=== PATIENT | female | born 1935 | race Caucasian/White ===

== ENCOUNTER → 2017-12-14 | Outpatient (CLI) | payer MEDICAID, OTHER | LOC: CIMAGING 13:48 → EDSTATUS 13:49 → CIMAGING 13:50 | PROVIDERS: ATTEND Nurse Practitioner Family | DX: J32.0 Chronic maxillary sinusitis (principal) | CPT/HCPCS: 70220-PO ==

== ENCOUNTER → 2018-01-19 | Outpatient (CLI) | payer OTHER | LOC: FIMAGING 15:11 | PROVIDERS: ATTEND Internal Medicine Geriatric Medicine | DX: J32.9 Chronic sinusitis, unspecified (principal) ==

== ENCOUNTER → 2018-03-28 | Outpatient (CLI) | payer MEDICAID, OTHER | LOC: CIMAGING 15:08 | PROVIDERS: ATTEND Internal Medicine Geriatric Medicine | DX: M24.811 Other specific joint derangements of right shoulder, not elsewhere classified (principal); M25.511 Pain in right shoulder | CPT/HCPCS: 73030-PO ==

== ENCOUNTER 2018-05-20 17:01 | Inpatient (IN) | payer MEDICAID ==
[2018-05-20] MEDS ORDERED: NS 1,000 ML IV ONE (17:10)
--- NOTE | 2018-05-20 17:14 | EDPHY ---
H & P Time Seen by Provider: 05/20/18 17:03 HPI/ROS: CHIEF COMPLAINT: Vomiting HISTORY OF PRESENT ILLNESS: 83-year-old female presents with a 3 day history of vomiting. Onset of vomiting and diarrhea 2 days ago. Persistent vomiting, unable to tolerate oral fluids. Associated with generalized abdominal pain. The diarrhea has resolved No fever or other associated symptoms. History of small-bowel obstruction. REVIEW OF SYSTEMS: complete 10 point ROS reviewed and is negative except for the noted elements in the HPI - Medical/Surgical History PMH: Small-bowel obstruction Cholecystectomy Uterine cancer - Social History Alcohol Use: Sober Drug Use: None - Physical Exam Exam: General Appearance: Alert, pleasant Eyes: Pupils equal and round, no conjunctival pallor ENT, Mouth: Mucous membranes dry Neck: Normal inspection Respiratory: Lungs are clear to auscultation anteriorly Cardiovascular: Regular rate and rhythm Gastrointestinal: Abdomen is distended, diffuse tenderness, decreased bowel sounds Neurological: A&O, nonfocal exam Skin: Warm and dry Extremities: Normal inspection Psychiatric: Mood and affect normal Constitutional: Initial Vital Signs Temperature (C) 36.6 C 05/20/18 17:09 Heart Rate 82 05/20/18 17:09 Respiratory Rate 16 05/20/18 17:09 Blood Pressure 143/85 H 05/20/18 17:09 O2 Sat (%) 94 05/20/18 17:09 O2 Delivery Mode Room Air Allergies/Adverse Reactions: cortisone Allergy (Verified 05/20/18 21:18) Flushing doxycycline Allergy (Verified 05/20/18 21:18) Hives duloxetine Allergy (Verified 05/20/18 21:18) Other-Enter Comments levofloxacin Allergy (Verified 05/20/18 21:18) Hives lisinopril Allergy (Verified 05/20/18 21:18) losartan Allergy (Verified 05/20/18 21:18) Hives nortriptyline Allergy (Verified 05/20/18 21:18) Penicillins Allergy (Verified 05/20/18 21:18) Hives steroids Allergy (Uncoded 05/20/18 21:18) Other-Enter Comments Home Medications: Medication Instructions Recorded Acetaminophen [Tylenol ES 500 mg 1,000 mg PO Q6 PRN 05/20/18 (*)] Aspirin EC [Aspirin EC 81 mg (*)] 81 mg PO DAILY 05/20/18 Atenolol [Tenormin 25 mg (*)] 25 mg PO DAILY 05/20/18 Azelastine HCl 2 sprays NS DAILY 05/20/18 Fluticasone Nasal [Flonase Nasal 2 sprays NASAL DAILY 05/20/18 [place] (RX)] Herbals/Supplements -Info Only 1 ea PO DAILY 05/20/18 P-EPHED HCL/FEXOFENADINE HCL 1 each PO DAILY 05/20/18 [VALDO-D 12 HOUR TABLET] traMADol [Ultram 50 mg (*)] 50 mg PO Q6-8PRN PRN 05/20/18 Medical Decision Making - Diagnostics Imaging Results: Abdomen CT 05/20/18 17:51 Impression: 1. Small bowel dilatation suggesting ileus or obstruction with no single focal transition point identified, with multiple areas of decompression in the left lower quadrant. 2. Moderate hiatal hernia. 3. Indeterminate bilateral adrenal nodules. If previous imaging of the chest or abdomen has been performed at an outside facility, I would be happy to compare it. If not, MR adrenal protocol or CT adrenal protocol could be performed for further evaluation. 4. Additional findings as above. Findings discussed with Dr. Beatriz Aj on 05/20/2018 at 1943 hours. Imaging: Discussed imaging studies w/ call worker Radiologist ED Course/Re-evaluation: This patient presents with vomiting and abdominal pain, most concerning for small bowel obstruction. IV normal saline 1 L and Zofran [address] scan reveals a small bowel obstruction. Results discussed with the patient. An NG tube was placed. The hospitalist service was consulted for admission. Dr. Roe Ramirez was consulted and saw the pt in the ED. Differential Diagnosis: Differential diagnosis includes though it is not limited to appendicitis, cholecystitis, diverticulitis, pyelonephritis, bowel perforation, small bowel obstruction. - Data Points Laboratory Results: Laboratory Results 05/20/18 17:24 05/20/18 17:24 Medications Given: Acetaminophen (Tylenol Rectal) 650 mg NE Q4HRS PRN PRN Reason: Pain, Mild/Fever,Can't Take PO Stop: 11/16/18 21:19 Last Admin: 05/22/18 17:45 Dose: 650 mg Enoxaparin Sodium (Lovenox) 80 mg SC BID NATHALIA Stop: 11/18/18 09:59 Last Admin: 05/23/18 08:08 Dose: 80 mg Fluticasone Propionate (Flonase Nasal [place]) 2 sprays [place] DAILY [facility] Stop: 11/17/18 08:59 Last Admin: 05/23/18 08:43 Dose: Not Given Hydromorphone HCl (Dilaudid) 0.2 - 0.4 mg IVP Q4HRS PRN PRN Reason: Pain, Severe Unable to Take PO Stop: 05/30/18 21:19 Last Admin: 05/23/18 13:17 Dose: 0.4 mg Potassium Chloride/Dextrose/Sod Cl (D5w Ns W/ 20 Kcl/L) 1,000 mls @ 100 mls/hr IV CONT NATHALIA Stop: 11/16/18 21:29 Last Admin: 05/23/18 16:12 Dose: 1,000 mls Miscellaneous Medication (Azelastine Hcl [Azelastine Hcl]) 2 sprays NS DAILY NATHALIA Stop: 11/17/18 08:59 Last Admin: 05/23/18 08:43 Dose: Not Given Discontinued Medications Diltiazem HCl (Cardizem 25 Mg/5 Ml Vial) 10 mg IVP ONCE ONE Stop: 05/21/18 23:31 Last Admin: 05/21/18 23:38 Dose: 10 mg Diltiazem HCl (Cardizem 25 Mg/5 Ml Vial) 10 mg IVP ONCE ONE Stop: 05/22/18 00:31 Last Admin: 05/22/18 00:35 Dose: 10 mg Diltiazem HCl (Cardizem Immediate Release) 30 mg PO Q6HRS [facility] Stop: 11/18/18 09:44 Last Admin: 05/23/18 04:54 Dose: 30 mg Enoxaparin Sodium (Lovenox) 40 mg SC DAILY NATHALIA Stop: 11/17/18 08:59 Last Admin: 05/22/18 09:59 Dose: Not Given Hydromorphone HCl (Dilaudid) 0.2 mg IVP EDNOW ONE Stop: 05/20/18 22:10 Last Admin: 05/20/18 22:26 Dose: 0.2 mg Sodium Chloride (Ns) 1,000 mls @ 0 mls/hr IV EDNOW ONE; Wide Open PRN Reason: Protocol Stop: 05/20/18 17:11 Last Admin: 05/20/18 17:31 Dose: 1,000 mls Sodium Chloride (Ns) 500 mls @ 0 mls/hr IV ONCE ONE PRN Reason: Wide Open Stop: 05/21/18 22:51 Last Admin: 05/22/18 05:10 Dose: Not Given Sodium Chloride (Ns) 500 mls @ 0 mls/hr IV ONCE ONE PRN Reason: Wide Open Stop: 05/21/18 23:39 Last Admin: 05/22/18 05:10 Dose: Not Given Diltiazem/Dextrose (Diltiazem 125mg/125ml (Premix)) 125 mls @ 0 mls/hr IV CONT NATHALIA; Per Protocol PRN Reason: Protocol Stop: 11/18/18 03:29 Last Admin: 05/22/18 04:49 Dose: 125 mls Point of Care Test Results: Chemistry 05/20/18 17:40 POC Sodium 136 mEq/L mEq/L (135-145) POC Potassium 3.4 mEq/L mEq/L (3.3-5.0) POC Chloride 101 mEq/L mEq/L (97-110) POC Total CO2 20 mEq/L L mEq/L (22-31) POC BUN 23 mg/dL mg/dL (7-23) POC Creatinine 0.9 mg/dL mg/dL (0.6-1.0) POC Glucose 127 mg/dL H mg/dL (70-100) ISTAT H&H 05/20/18 17:40 POC Hgb 16.0 gm/dL gm/dL (12.6-16.3) POC Hct 47 % % (38-47) Departure - Departure Disposition: [facility] Acute Clinical Impression: Small bowel obstruction Condition: Fair
[2018-05-20] MEDS ORDERED: IOPAMIDOL (ISOVUE-300) 100 ML BTL ONE (18:19)
[2018-05-20] MEDS ORDERED: ONDANSETRON 4 MG/2 ML VIAL IVP PRN (21:20)
[2018-05-20] MEDS ORDERED: PROMETHAZINE HCL 25 MG/ML INJ IVP PRN (21:20)
--- NOTE | 2018-05-20 21:23 | PDGENHP ---
History and Physical - Chief Complaint abdominal pain, vomiting, diarrhea - History of Present Illness 83 yo female with h/o prior abdominal surgeries presents to ED with abdominal pain, vomiting and diarrhea. Her symptoms began ~3 days ago and over past 2 days, she has been unable to tolerate po with recurrent vomiting. She has also been having watery, leaking diarrhea, but no formed stool. She thought maybe she had the flu so tried to wait it out, but had increased pain and recurrent vomiting today so came to the ED. No fevers/chills. No urinary symptoms. No hematemesis or coffee ground emesis. No CP or SOB In the ED, CT showed SBO. NG tube was placed, surgery was consulted and she is admitted for further management. History Information - Allergies/Home Medication List Allergies/Adverse Reactions: cortisone Allergy (Verified 05/20/18 21:18) Flushing doxycycline Allergy (Verified 05/20/18 21:18) Hives duloxetine Allergy (Verified 05/20/18 21:18) Other-Enter Comments levofloxacin Allergy (Verified 05/20/18 21:18) Hives lisinopril Allergy (Verified 05/20/18 21:18) losartan Allergy (Verified 05/20/18 21:18) Hives nortriptyline Allergy (Verified 05/20/18 21:18) Penicillins Allergy (Verified 05/20/18 21:18) Hives steroids Allergy (Uncoded 05/20/18 21:18) Other-Enter Comments Home Medications: Acetaminophen [Tylenol ES 500 mg (*)] 1,000 mg PO Q6 PRN 05/20/18 [Last Taken Unknown] Aspirin EC [Aspirin EC 81 mg (*)] 81 mg PO DAILY 05/20/18 [Last Taken 05/17/18] Atenolol [Tenormin 25 mg (*)] 25 mg PO DAILY 05/20/18 [Last Taken 05/18/18] Azelastine HCl 2 sprays NS DAILY 05/20/18 [Last Taken Unknown] Fluticasone Nasal [Flonase Nasal [place] (RX)] 2 sprays NASAL DAILY 05/20/18 [ Last Taken Unknown] Herbals/Supplements -Info Only 1 ea PO DAILY 05/20/18 [Last Taken Unknown] P-EPHED HCL/FEXOFENADINE HCL [VALDO-D 12 HOUR TABLET] 1 each PO DAILY [Last Taken Unknown] traMADol [Ultram 50 mg (*)] 50 mg PO Q6-8PRN PRN 05/20/18 [Last Taken 05/20/18 14:00] I have personally reviewed and updated: family history, medical history, social history, surgical history - Past Medical History hypertension - Surgical History Reports: cholecystectomy, hysterectomy - Family History Positive for: non-pertinent - Social History Smoking Status: Never smoked Alcohol Use: Sober Drug Use: None Additional social history: Lives independently Review of Systems Review of Systems: ROS: 10pt was reviewed & negative except for what was stated in HPI & below Physical Exam Physical Exam: Temp Pulse Resp BP Pulse Ox 36.6 C 82 16 143/85 H 94 05/20/18 17:18 05/20/18 17:18 05/20/18 17:18 05/20/18 17:18 05/20/18 17:18 Constitutional: no apparent distress Eyes: PERRL Ears, Nose, Mouth, Throat: moist mucous membranes Cardiovascular: regular rate and rhythym Respiratory: no respiratory distress, clear to auscultation Gastrointestinal: other (soft, moderately distented with +TTP and some guarding , +peritoneal signs with pain on percussion) Skin: warm Musculoskeletal: full muscle strength Neurologic: AAOx3 Psychiatric: interacting appropriately Lab Data & Imaging Review 05/20/18 17:24 05/20/18 17:24 WBC REJ 05/20/18 17:24 RBC TNP 05/20/18 17:24 Hgb TNP 05/20/18 17:24 POC Hgb 16.0 gm/dL (12.6-16.3) 05/20/18 17:40 Hct TNP 05/20/18 17:24 POC Hct 47 % (38-47) 05/20/18 17:40 MCV TNP 05/20/18 17:24 MCH TNP 05/20/18 17:24 MCHC TNP 05/20/18 17:24 RDW TNP 05/20/18 17:24 Plt Count TNP 05/20/18 17:24 MPV TNP 05/20/18 17:24 Neut % (Auto) TNP 05/20/18 17:24 Lymph % (Auto) TNP 05/20/18 17:24 [place] % (Auto) TNP 05/20/18 17:24 Eos % (Auto) TNP 05/20/18 17:24 Baso % (Auto) TNP 05/20/18 17:24 Nucleat RBC Rel Count TNP 05/20/18 17:24 Absolute Neuts (auto) TNP 05/20/18 17:24 Absolute Lymphs (auto) TNP 05/20/18 17:24 Absolute Monos (auto) TNP 05/20/18 17:24 Absolute Eos (auto) TNP 05/20/18 17:24 Absolute Basos (auto) TNP 05/20/18 17:24 Absolute Nucleated RBC TNP 05/20/18 17:24 Immature Gran % TNP 05/20/18 17:24 Immature Gran # TNP 05/20/18 17:24 POC Sodium 136 mEq/L (135-145) 05/20/18 17:40 Sodium 132 mEq/L (135-145) L 05/20/18 17:24 POC Potassium 3.4 mEq/L (3.3-5.0) 05/20/18 17:40 Potassium 3.9 mEq/L (3.5-5.2) 05/20/18 17:24 POC Chloride 101 mEq/L (97-110) 05/20/18 17:40 Chloride 100 mEq/L (97-110) 05/20/18 17:24 Carbon Dioxide 17 mEq/l (22-31) L 05/20/18 17:24 POC Total CO2 20 mEq/L (22-31) L 05/20/18 17:40 Anion Gap 15 mEq/L (6-14) H 05/20/18 17:24 POC BUN 23 mg/dL (7-23) 05/20/18 17:40 BUN 25 mg/dL (7-23) H 05/20/18 17:24 Creatinine 0.9 mg/dL (0.6-1.0) 05/20/18 17:24 POC Creatinine 0.9 mg/dL (0.6-1.0) 05/20/18 17:40 Estimated GFR 60 05/20/18 17:24 Glucose 121 mg/dL (70-100) H 05/20/18 17:24 POC Glucose 127 mg/dL (70-100) H 05/20/18 17:40 Calcium 9.8 mg/dL (8.5-10.4) 05/20/18 17:24 Total Bilirubin 0.5 mg/dL (0.1-1.4) 05/20/18 17:24 Conjugated Bilirubin 0.3 mg/dL (0.0-0.5) 05/20/18 17:24 Unconjugated Bilirubin 0.2 mg/dL (0.0-1.1) 05/20/18 17:24 AST 27 IU/L (14-46) 05/20/18 17:24 ALT 26 IU/L (9-52) 05/20/18 17:24 Alkaline Phosphatase 103 IU/L (38-126) 05/20/18 17:24 Total Protein 8.3 g/dL (6.3-8.2) H 05/20/18 17:24 Albumin 4.3 g/dL (3.5-5.0) 05/20/18 17:24 Lipase 100 IU/L (23-300) 05/20/18 17:24 Assessment & Plan Assessment: Small bowel obstruction (Acute) - NG tube placed for ongoing vomiting, pt has put out >400 cc's during my evaluation. Surgery is consulted. Pt will be kept NPO, pain control with IV dilaudid. Hopefully will resolve with conservative therapy. Diarrhea - likely subsequent to above, but will check GI PCR. Hyponatremia - mild, likely 2/2 volume depletion -NS overnight and recheck in am Metabolic acidosis with mildly elevated AG - suspect starvation ketosis -hydrate and follow Adrenal nodules - f/u CT adrenal protocol when SBO resolved Full code Dispo - admit to inpt, anticipate >48 hrs hospitalization for ongoing management of SBO
[2018-05-20] MEDS ORDERED: HYDROmorphONE/DILAUDID 2 MG/ML INJ IVP ONE (22:09)
[2018-05-21 05:24] LABS: PLATELET COUNT 274 10^3/uL (150-400)
[2018-05-21] MEDS: HYDROmorphONE/DILAUDID 1 MG/ML INJ IVP PRN ×4 (06:03→21:48)
[2018-05-21] MEDS: D5W NS W/ 20 KCl/L 1,000 ML IV SCH ×3 (06:21→22:02)
--- NOTE | 2018-05-21 08:02 | GCON ---
[f rep st] CONSULTATION DATE OF CONSULTATION: 05/20/2018 REFERRING PHYSICIAN: Beatriz Aj MD REASON FOR EVALUATION: Small-bowel obstruction. HISTORY OF PRESENT ILLNESS: 83-year-old spunky female with a remote history of endometrial carcinoma status post total abdominal hysterectomy with bilateral salpingo-oophorectomy with bladder suspension and subsequent laparoscopic cholecystectomy. She describes having suffered from a prior adhesive small- bowel obstruction 1 year ago, which improved with nasogastric decompression. She presents to the emergency room today with a 2-3 day history of progressive abdominal pain. She reports that her bowel movements are generally soft and watery and have been diminished in quantity. She reports that her last flatus was earlier this afternoon. Her last full bowel movement was approximately Wednesday. She reports associated nausea and vomiting for which she called the EMS because of a feeling of weakness. She denies fevers or chills. She denies voiding complaints. Upon ED arrival imaging studies were consistent with a small bowel obstruction. Nasogastric tube was placed and surgery consulted for further recommendations. PAST MEDICAL HISTORY: Hypertension, endometrial carcinoma. PAST SURGICAL HISTORY: Total abdominal hysterectomy with bilateral salpingo- oophorectomy, bladder suspension, laparoscopic cholecystectomy, right total knee replacement, a LEEP procedure. MEDICATIONS: Home medications: Tylenol p.r.n., aspirin, atenolol, azelastine, fluticasone, multiple supplementals, tramadol p.r.n. ALLERGIES: Multiple allergies including cortisone, doxycycline, duloxetine, Levaquin, lisinopril, losartan, nortriptyline, penicillin. SOCIAL HISTORY: The patient lives independently. She is followed by Dr. Marisa Camargo at [facility]. REVIEW OF SYSTEMS: Notable for acute GI complaints only. LABORATORY DATA: Sodium 136, potassium 3.4, chloride 101, CO2 20, BUN 23, creatinine 0.9, glucose 127. Liver enzymes within reference range. CBC rejected by lab. IMAGING: CT images were directly reviewed on PACS, notable proximal small bowel obstruction with decompressed distal small bowel. No free fluid. No free air. Moderate size hiatal hernia consistent with nasogastric tube difficulty. Subtle bilateral adrenal nodules. IMPRESSION: Partial small bowel obstruction, most likely adhesive in nature. RECOMMENDATIONS: Continue with conservative measures with nasogastric decompression - her tube was manipulated with large outpouring of gastric content. If no clinical resolution or subsequent deterioration in the next 72 hours, consideration for laparoscopic exploration will be entertained at that time. Findings and recommendations were discussed with the patient in detail. All questions were answered. /[id number]/MODL MTDD
--- NOTE | 2018-05-21 09:26 | HOSPPROG ---
Hospitalist Progress Note Assessment/Plan: Small bowel obstruction (Acute) - Xray this am shows some improvement (pers reviewed/interpreted). Discussed with Dr. Fernando. -Cont NG tube, IVF's, NPO, conservative management -Gastrograffin study today Diarrhea - Likely related to above -GI PCR pending Hyponatremia - likely hypovolemic, resolved with IVF's Metabolic acidosis with mildly elevated AG - suspect starvation ketosis, improving -cont IVF's Adrenal nodules - f/u CT adrenal protocol when SBO resolved, could be done as outpt Full code Dispo - cont inpt Subjective: Pt feels a little better. Passing flatus, no formed BM but still some leaking watery stool. No fevers/chills. Tolerating NG tube. No N/V. A little less pain and distention. Objective: Vital Signs Temp Pulse Resp BP Pulse Ox 36.8 C 82 16 135/72 H 95 05/21/18 08:30 05/21/18 08:30 05/21/18 08:30 05/21/18 08:30 05/21/18 08:30 Laboratory Results 05/21/18 04:43 05/21/18 04:43 05/20/18 05/21/18 05/22/18 05:59 05:59 06:59 Intake Total 794 Output Total 200 Balance 794 -200 - Physical Exam Constitutional: no apparent distress Eyes: PERRL Ears, Nose, Mouth, Throat: moist mucous membranes Cardiovascular: regular rate and rhythym Respiratory: no respiratory distress, clear to auscultation Gastrointestinal: other (soft, mild distention (improved), +BS) Skin: warm Musculoskeletal: full muscle strength Neurologic: AAOx3 Psychiatric: interacting appropriately ICD10 Worksheet Patient Problems: Problems Problem Status Onset Small bowel obstruction Acute
[2018-05-21] MEDS: AZELASTINE HCL NS SCH (09:42)
[2018-05-21] MEDS: ENOXAPARIN 40 MG/0.4 ML SYR SC SCH (10:40)
--- NOTE | 2018-05-21 10:51 | PDMN ---
Medical Necessity Medical necessity: [facility] M210 Intestinal Obstruction, 2 days: 83 yo presents w/ N/ V, abd pain, diarrhea. Eval reveals SBO. Surgical consult. NGT placed. NPO. IVF. IV Dilaudid for pain management. Inpatient status.
--- NOTE | 2018-05-21 11:50 | SOAPPROG ---
[facility] Progress Note Assessment/Plan: Assessment/Plan: 83-year-old patient with a history of abdominal hysterectomy presented to the hospital with questionable small-bowel obstruction versus enteritis. The patient has had a positive test for norovirus today and has had gas and stool from the bottom. Patient's pain was different from her at obstruction last year treated non operatively Regular rate and rhythm Clear to auscultation Abdomen soft nondistended Extremities without edema NG tube productive of enteric bile no signs of feculent material. Small-bowel obstruction versus enteritis. Enteritis favored. Abdominal x-ray from this morning demonstrates gas within the colon and less of an obstructive pattern. Would favor supportive care at this time. Hold on Gastrografin small- bowel follow-through. Will continue to follow for now. 05/21/18 11:48 Objective: Vital Signs Temp Pulse Resp BP Pulse Ox 36.8 C 82 16 135/72 H 95 05/21/18 08:30 05/21/18 08:30 05/21/18 08:30 05/21/18 08:30 05/21/18 08:30 Microbiology 05/21/18 00:30 Gastrointestinal Tract Panel (PCR) - Final Stool Norovirus Gi/Gii Laboratory Results 05/21/18 04:43 05/21/18 04:43 05/20/18 05/21/18 05/22/18 05:59 05:59 06:59 Intake Total 794 Output Total 200 Balance 794 -200 ICD10 Worksheet Patient Problems: Problems Problem Status Onset Small bowel obstruction Acute
--- NOTE | 2018-05-21 12:49 | ASMTCMCOM ---
CM Note CM Note Notes: Pt has been admitted with SBO and tested positive for norovirus. NGT placed and surgery consult requested. No PT/OT orders at this time. Pt lives independently in [place]. CM wlll follow for any d/c needs. D/C plan: TBD Date Signed: 05/21/2018 12:49 PM Electronically Signed By:THERESA Reeder
[2018-05-21] MEDS: FLUTICASONE NASAL 120 SPRAYS/16 GM MDI EACHNARE SCH (13:04)
[2018-05-21] MEDS ORDERED: NS 500 ML IV ONE ×2 (22:50→23:38)
[2018-05-21] MEDS ORDERED: DILTIAZEM 25 MG/5 ML VIAL IVP ONE (23:30)
--- NOTE | 2018-05-21 23:30 | HOSPPROG ---
Hospitalist Progress Note Assessment/Plan: XC: Patient noted to have new SVT w/ HR in the 140-160 range. She tells me she has had elevated HR before but no formal diagnosis. She is on atenolol as outpatient. She is relatively comfortable with normal BP. ECG demonstrates AF w / RVR. I will bolus diltiazem 10 mg IV x1 and give NS bolus; will proceed to dilt gtt if bolus not successful. Objective: Vital Signs Temp Pulse Resp BP Pulse Ox 36.8 C 89 16 147/65 H 94 05/21/18 20:00 05/21/18 20:00 05/21/18 20:00 05/21/18 20:00 05/21/18 20:00 Microbiology 05/21/18 00:30 Gastrointestinal Tract Panel (PCR) - Final Stool Norovirus Gi/Gii Laboratory Results 05/21/18 04:43 05/21/18 04:43 05/20/18 05/21/18 05/22/18 05:59 05:59 06:59 Intake Total 794 1927 Output Total 1300 Balance 794 627 ICD10 Worksheet Patient Problems: Problems Problem Status Onset Small bowel obstruction Acute
[2018-05-22] MEDS ORDERED: DILTIAZEM 25 MG/5 ML VIAL IVP ONE (00:30)
[2018-05-22] MEDS: HYDROmorphONE/DILAUDID 1 MG/ML INJ IVP PRN ×5 (03:25→20:42)
[2018-05-22] MEDS ORDERED: DILTIAZEM HCL/D5W 125 ML IV SCH (03:30)
[2018-05-22] MEDS: D5W NS W/ 20 KCl/L 1,000 ML IV SCH ×3 (06:08→21:55)
--- NOTE | 2018-05-22 07:54 | SOAPPROG ---
SOAP Progress Note Assessment/Plan: Assessment/Plan: 83-year-old patient with a history of abdominal hysterectomy presented to the hospital with questionable small-bowel obstruction versus enteritis. The patient has had a positive test for norovirus today and has had gas and stool from the bottom. Patient's pain was different from her at obstruction last year treated non operatively Regular rate and rhythm Clear to auscultation Abdomen soft nondistended Extremities without edema NG tube productive of enteric bile no signs of feculent material. Minimal NGT output Passing flatus Positive Norovirus. Clamp NGT. Cont clear liquids. If tolerating clears D/C NGT and advance diet 05/21/18 11:48 05/22/18 07:52 Objective: Vital Signs Temp Pulse Resp BP Pulse Ox 36.9 C 107 H 20 153/101 H 98 05/22/18 04:00 05/22/18 04:49 05/22/18 04:00 05/22/18 04:00 05/22/18 04:00 Microbiology 05/21/18 00:30 Gastrointestinal Tract Panel (PCR) - Final Stool Norovirus Gi/Gii Laboratory Results 05/21/18 04:43 05/21/18 04:43 05/21/18 05/22/18 05/23/18 04:59 05:59 05:59 Intake Total Output Total Balance ICD10 Worksheet Patient Problems: Problems Problem Status Onset Small bowel obstruction Acute
[2018-05-22] MEDS: AZELASTINE HCL NS SCH (08:24)
--- NOTE | 2018-05-22 09:35 | HOSPPROG ---
Hospitalist Progress Note Assessment/Plan: Norovirus - presented with SBO symptoms, requiring NG tube. Discussed with surg , this is likely all enteritis due to infectious etiology. Now c flatus and BM. -cont supportive care with IVF's, clear liquids as tolerated -clamp ng tube this am, remove if tolerates clears -contact precautions New onset A fib - in setting of acute illness, chads-vasc 4 (gender, age, htn), currently HR 100's on IV dilt drip -start oral dilt 30 q6h, wean off IV drip as able -will give lovenox now for cva prevention -suspect she has paroxysmal a fib with reported symptoms, likely warrants AC at dc and outpt cardiac event monitor -check echo and TSH Hyponatremia - likely hypovolemic, resolved with IVF's Metabolic acidosis with mildly elevated AG - suspect starvation ketosis, improving -cont IVF's Adrenal nodules - f/u CT adrenal protocol when SBO resolved, could be done as outpt Full code Dispo - cont inpt, PCU Subjective: Pt feels a little better, still weak and not taking much po. She denies CP or SOB, but does feel abnormal heart rhythm. No N/V. Tolerating clears. Has passed gas and continues to have BM's. Objective: Vital Signs Temp Pulse Resp BP Pulse Ox 37.1 C 110 H 16 122/57 H 96 05/22/18 08:19 05/22/18 08:19 05/22/18 08:19 05/22/18 08:19 05/22/18 08:19 Microbiology 05/21/18 00:30 Gastrointestinal Tract Panel (PCR) - Final Stool Norovirus Gi/Gii Laboratory Results 05/21/18 04:43 05/21/18 04:43 05/21/18 05/22/18 05/23/18 04:59 05:59 05:59 Intake Total Output Total Balance - Physical Exam Constitutional: no apparent distress Eyes: PERRL Ears, Nose, Mouth, Throat: moist mucous membranes Cardiovascular: irregularly irregular Respiratory: no respiratory distress, clear to auscultation Gastrointestinal: normoactive bowel sounds, soft, non-tender abdomen, distension Skin: warm Musculoskeletal: full muscle strength Neurologic: AAOx3 Psychiatric: interacting appropriately ICD10 Worksheet Patient Problems: Problems Problem Status Onset Small bowel obstruction Acute
[2018-05-22] MEDS: ENOXAPARIN 40 MG/0.4 ML SYR SC SCH (09:59)
[2018-05-22] MEDS: ENOXAPARIN 80 MG/0.8 ML SYR SC SCH ×2 (10:23→20:55)
[2018-05-22] MEDS: DILTIAZEM 30 MG TAB PO SCH ×3 (10:23→17:45)
[2018-05-22] MEDS: FLUTICASONE NASAL 120 SPRAYS/16 GM MDI EACHNARE SCH (12:00)
[2018-05-22] MEDS: ACETAMINOPHEN 650 MG SUPP PR PRN (17:45)
--- NOTE | 2018-05-22 18:35 | ECHO ---
[email or web address] [address] [address] Main: [phone] Echocardiography Examination Transthoracic Name: JANA GAO MR#: [id number] Study Date: 05/22/2018 Study Time: 07:05 AM Date of : 1935 Age: 83 year(s) Height: 170.2 cm (67 in.) Weight: 77.11 kg (170 lb.) BSA: 1.89 m2 Gender: Female Examination: Echo Indication: New onset atrial fibrillation Image Quality: Adequate Contrast: Requested by: ?? BP: 123 mmHg/81 mmHg Heart Rate: Rhythm: Indication: New onset atrial fibrillation Procedure Staff Referring Physician: Coke Drawer: Miya Beach RDCS Reading Physician: Danny Valencia MD Requesting Provider: Indication: New onset atrial fibrillation Measurements Chambers AV/MV Label Value Normal Value Label Value Normal Value EF lower range (%) 70 % AV PGmean 5 mmHg EF upper range (%) 75 % AV Vmax, Curve 1.5 m/s IVSd, 2D 0.8 cm (0.6cm - 1.1cm) MV A Vmax 0.29 m/s LVDd, 2D 4.2 cm (3.9cm - 5.3cm) MV E Vmax 1.11 m/s LVDs, 2D 2.3 cm (2.1cm - 4cm) MV E/A 3.83 LVEF, 2D 78 % (54% - 74%) TV/PV LVEF, BP 67 % (55% - 70%) Label Value Normal Value LVEF, MOD2 64 % (55% - 70%) RA Pressure 5 mmHg LVEF, MOD4 67 % (55% - 70%) RVSP 30 mmHg LVPWd, 2D 1 cm TR Pmax 25 mmHg LA Area, A2C 22.4 cm2 (0cm2 - 20cm2) TR Vmax 2.48 m/s LA Volume, A2C 74 ml (22ml - 52ml) LADs, 2D 3.8 cm (2.7cm - 3.8cm) Additional Vessels Label Value Normal Value AoAsc 3.5 cm AoRoot, MM 3.2 cm (2.2cm - 3.7cm) Patient: JANA GAO Study Date: 05/22/2018 Page 1 of 3 07:05 AM Conclusions Left ventricular systolic ejection fraction was normal (70%) Patient was in atrial fibrillation over course of this study Normal RV size and function Mild to mod LAE with normal right atrial dimensions Mild MR Trileaflet aortic valve with mild sclerosis (no stenosis) Mild TR with RVSP of 30 mm HG Normal aortic dimensions Findings Left Ventricle: Left ventricle is normal in size. Global hypercontractility of the left ventricle. EF range is estimated at 70 % - 75 %. Left ventricle wall thickness is normal. There is no regional wall motion abnormalities. Unable to assess Diastolic Dysfunction due to atrial fibrillation/a flutter. IVS: The septum is intact. Right Ventricle: Normal size right ventricle. Right ventricular wall thickness is normal. Right ventricular systolic function is normal. Left Atrium: The left atrium is mildly to moderately dilated. IAS: Normal appearing atrial septum. Right Atrium: The right atrium is normal in size. Mitral Valve: Mitral valve appears structurally normal. Mild mitral regurgitation. No mitral valve stenosis. Aortic Valve: No aortic valve regurgitation. There is no aortic stenosis. Aortic leaflets exhibit mild calcification. The aortic valve is trileaflet. Tricuspid Valve: Tricuspid valve leaflets are normal in appearance and function. Mild tricuspid regurgitation. No tricuspid valve stenosis. Right Ventricular systolic pressure is measured at 30 mmHg. Pulmonary artery pressure normal. Pulmonic Valve: Pulmonic leaflets exhibit normal cuspal separation. No pulmonic valve regurgitation is evident. There is no pulmonic valve stenosis. Aorta: The aorta is normal. The aortic root size in M-mode measures 3.2 cm. The ascending aorta measures 3.5 cm. Aorta Measurements AoRoot, MM is 3.2 cm. Pulmonary Artery: The pulmonary artery morphology appears normal. IVC: The inferior vena cava is normal in size and course. Pericardium: A pericardial fat pad is present. No pericardial effusion. No pleural effusion present. Exam Details Procedure Ordered: Echo Procedure Status: Routine study Image Quality: Adequate Facility Location: Cardiac Echo 1 Patient: JANA GAO Study Date: 05/22/2018 Page 2 of 3 07:05 AM (No Signature Object) Patient: JANA GAO Study Date: 05/22/2018 Page 3 of 3 07:05 AM [id number]
[2018-05-23] MEDS: DILTIAZEM 30 MG TAB PO SCH ×2 (00:52→04:54)
[2018-05-23] MEDS: HYDROmorphONE/DILAUDID 1 MG/ML INJ IVP PRN ×5 (00:52→19:24)
[2018-05-23] MEDS: D5W NS W/ 20 KCl/L 1,000 ML IV SCH ×3 (04:55→16:12)
[2018-05-23] MEDS: ENOXAPARIN 80 MG/0.8 ML SYR SC SCH ×2 (08:08→21:48)
[2018-05-23] MEDS: AZELASTINE HCL NS SCH (08:43)
[2018-05-23] MEDS: FLUTICASONE NASAL 120 SPRAYS/16 GM MDI EACHNARE SCH (08:43)
--- NOTE | 2018-05-23 10:09 | HOSPPROG ---
Hospitalist Progress Note Assessment/Plan: Norovirus - presented with SBO symptoms, requiring NG tube. Discussed with surg , this is likely all enteritis due to infectious etiology. Now c flatus and BM. -cont supportive care with IVF's, clear liquids as tolerated -ng tube remains, didn't tolerate clamping ng tube yest -repeat abdominal xray today -contact precautions New onset A fib - in setting of acute illness, chads-vasc 4 (gender, age, htn), back in NSR today. Sounds like she has had recurrent symptoms c/w PAF. -transition to dilt cd 120 qd, off drip, back in NSR this am -cont lovenox for cva prevention, likely transition to eliquis at dc -plan for outpt cardiac event monitor to further investigate a fib burden -echo and TSH ok Hyponatremia - likely hypovolemic, resolved with IVF's Metabolic acidosis with mildly elevated AG - suspect starvation ketosis, improving -cont IVF's Adrenal nodules - f/u CT adrenal protocol when SBO resolved, could be done as outpt Full code Dispo - cont inpt, PCU Subjective: Pt still feels lousy. NG tube back to suction, did not tolerate oral intake with clamping ng tube yesterday. Now in NSR. No CP or SOB. She decribes recurrent episodes of irregular palpitations over past several years. No fevers. Still having BM's, diarrhea. Objective: Vital Signs Temp Pulse Resp BP Pulse Ox 36.4 C 85 18 143/69 H 93 05/23/18 08:00 05/23/18 08:00 05/23/18 08:00 05/23/18 08:00 05/23/18 08:00 Laboratory Results 05/21/18 04:43 05/21/18 04:43 05/22/18 05/23/18 05/24/18 05:59 05:59 05:59 Intake Total 3635 Output Total 500 Balance 3135 - Physical Exam Constitutional: no apparent distress Eyes: PERRL Ears, Nose, Mouth, Throat: moist mucous membranes Cardiovascular: regular rate and rhythym Respiratory: no respiratory distress, clear to auscultation Gastrointestinal: normoactive bowel sounds, soft, non-tender abdomen Skin: warm Musculoskeletal: full muscle strength Neurologic: AAOx3 Psychiatric: interacting appropriately ICD10 Worksheet Patient Problems: Problems Problem Status Onset Small bowel obstruction Acute
--- NOTE | 2018-05-23 12:07 | ASMTCMCOM ---
CM Note CM Note Notes: NG tube back to suction; patient did not tolerate PO yesterday with clamping of tube. PT/OT recommending home health v SNF. Patient is enrolled w [facility]; she goes to their center 2x week and has PT there. She has light housekeeping help, as well. [facility] does not really contract w SNFs for rehab but rather uses them occasionally for respite until a patient can return to their program. Contact at [facility] is Repair Arm[employer] Winder [phone] Patient's needs still TBD; Case Management will follow. Date Signed: 05/23/2018 12:06 PM Electronically Signed By:Arianna Mcconnell RN
[2018-05-23] MEDS: DILTIAZEM CD 120 MG CAP PO SCH ×2 (13:17→18:37)
--- NOTE | 2018-05-23 15:23 | SOAPPROG ---
SOAP Progress Note Assessment/Plan: Assessment/Plan: 83-year-old patient with a history of abdominal hysterectomy presented to the hospital with questionable small-bowel obstruction versus enteritis. The patient has had a positive test for norovirus today and has had gas and stool from the bottom. Patient's pain was different from her at obstruction last year treated non operatively Regular rate and rhythm Clear to auscultation Abdomen soft nondistended Extremities without edema NG tube productive of enteric bile no signs of feculent material. Minimal NGT output Passing flatus and BM Positive Norovirus. AXR reviewed no sbo NGT removed Adv diet slowly. 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 05/21/18 11:48 05/22/18 07:52 05/23/18 15:22 Objective: Vital Signs Temp Pulse Resp BP Pulse Ox 36.7 C 87 18 161/90 H 96 05/23/18 11:30 05/23/18 11:30 05/23/18 11:30 05/23/18 11:30 05/23/18 11:30 Laboratory Results 05/21/18 04:43 05/21/18 04:43 05/22/18 05/23/18 05/24/18 05:59 05:59 05:59 Intake Total 3635 1150 Output Total 500 350 Balance 3135 800 ICD10 Worksheet Patient Problems: Problems Problem Status Onset Small bowel obstruction Acute
[2018-05-23] MEDS: ACETAMINOPHEN 650 MG SUPP PR PRN (21:48)
[2018-05-24] MEDS: D5W NS W/ 20 KCl/L 1,000 ML IV SCH (01:58)
[2018-05-24] MEDS: HYDROmorphONE/DILAUDID 1 MG/ML INJ IVP PRN (04:28)
--- NOTE | 2018-05-24 10:17 | HOSPPROG ---
Hospitalist Progress Note Assessment/Plan: Norovirus - presented with SBO symptoms, requiring NG tube, removed yesterday and pt tolerating clears today. Discussed with surg, this is likely all enteritis due to infectious etiology. Now c flatus and BM. -advance diet as tolerated today -contact precautions New onset A fib - in setting of acute illness, chads-vasc 4 (gender, age, htn), back in NSR today. Sounds like she has had recurrent symptoms possibly c/w PAF. -transitioned to dilt cd 120 qd, off drip, remains in NSR this am (she is on atenolol as outpt, could replace this with dilt) -received lovenox during rapid a fib, but will hold off on anti-coagulation at this point given that she converted within 24 hrs -plan for outpt cardiac event monitor to further investigate a fib burden, Shy Romero from [facility] will arrange -echo and TSH ok Hyponatremia - likely hypovolemic, resolved with IVF's Metabolic acidosis with mildly elevated AG - suspect starvation ketosis, improved with IVF's Adrenal nodules - f/u CT adrenal protocol when SBO resolved, could be done as outpt Full code Dispo - cont inpt, PCU. PT/OT evals pending, ?Home care vs SNF. Pt plugged in with [facility] and they prefer she have outpt f/u with them, await PT recs. Possible dc in am if tolerating po. Subjective: Pt still c/o abdominal pain, on commode. Stools a bit softer, less watery. No vomiting. Tolerating clears, hasn't had much oral intake. No fevers/chills. Now in NSR. No palpitations, CP or SOB. Objective: Vital Signs Temp Pulse Resp BP Pulse Ox 36.8 C 70 15 133/63 H 94 05/24/18 07:39 05/24/18 07:39 05/24/18 07:39 05/24/18 07:39 05/24/18 07:39 Laboratory Results 05/21/18 04:43 05/21/18 04:43 05/23/18 05/24/18 05/25/18 05:59 05:59 05:59 Intake Total 3635 2550 Output Total 500 2800 Balance 3135 -250 - Physical Exam Constitutional: no apparent distress Eyes: PERRL Ears, Nose, Mouth, Throat: moist mucous membranes Cardiovascular: regular rate and rhythym Respiratory: no respiratory distress, clear to auscultation Gastrointestinal: normoactive bowel sounds, soft, non-tender abdomen Skin: warm Musculoskeletal: full muscle strength Neurologic: AAOx3 Psychiatric: interacting appropriately ICD10 Worksheet Patient Problems: Problems Problem Status Onset Small bowel obstruction Acute
[2018-05-24] MEDS: DILTIAZEM CD 120 MG CAP PO SCH (10:29)
[2018-05-24] MEDS: ENOXAPARIN 80 MG/0.8 ML SYR SC SCH (10:39)
[2018-05-24] MEDS: FLUTICASONE NASAL 120 SPRAYS/16 GM MDI EACHNARE SCH (10:41)
[2018-05-24] MEDS: AZELASTINE HCL NS SCH (10:46)
[2018-05-24] MEDS: ACETAMINOPHEN 325 MG TAB PO PRN ×3 (10:53→23:11)
[2018-05-24] MEDS: traMADol 50 MG TAB PO PRN ×3 (10:54→23:11)
--- NOTE | 2018-05-24 15:35 | PDIAF ---
- Diagnosis Diagnosis: norovirus, brief a fib Code Status: Full Code - Medication Management Discharge Medications: electronically signed and located in the Home Medication List. PICC Care - Routine: N/A - Orders Services needed: Home Care, Registered Nurse, Physical Therapy, Occupational Therapy Home Care Face to Face: I certify that this patient was under my care and that I had the required [id number] encounter meeting the encounter requirements on the discharge day. My findings support the fact that the patient is homebound as defined in Home Care Face to Face Continued: CMS Chapter 7 Medicare Benefits Manual 30.1.1 , The condition of the patient is such that there exists a normal inability to leave home and consequently, leaving home would require a considerable and taxing effort. Isolation Type: Contact Isolation, Droplet Isolation Diet Recommendation: no restrictions on diet Diet Texture: Regular Texture Diet, Thin Liquids, Meds Whole w/Liquids Additional Instructions: [facility] will arrange for an outpatient cardiac event monitor to look for recurrent A fib. Follow up in their office in 2 weeks. Stop the Atenolol. Diltiazem will replace this to help prevent recurrent atrial fibrillation (A fib). - Follow Up Care Current Providers and Referrals: Patient,NotPresent [Unknown] - As per Instructions Shy Romero PA [Physician Cadet Deck] -
--- NOTE | 2018-05-24 15:51 | ASMTLACE ---
BO Acuity / Level of Answers: Yes Care: Did the patient have an inpatient admission? Comorbidities - select Answers: Other Notes: HTN all that apply # of Emergency department Answers: 1-2 visits in the last 6 months Score: 5 Date Signed: 05/24/2018 03:50 PM Electronically Signed By:Christie Urbina RN
--- NOTE | 2018-05-24 16:16 | ASMTCMCOM ---
CM Note CM Note Notes: Spoke to Melania at [facility] #[phone], they cannot accept patient back tonight this late d/t contact precautions and her current skilled nursing situation. Melania will work on finding a respite bed for a discharge tomorrow. Sent info to Richar at [facility] per Melania's request, they may have a respite bed available on Wednesday. I have also alerted Dr. Terry and her primary RN. Plan: [facility] Respite bed. Date Signed: 05/24/2018 04:15 PM Electronically Signed By:Christie Urbina RN
[2018-05-25] MEDS: traMADol 50 MG TAB PO PRN ×2 (08:02→23:46)
[2018-05-25] MEDS: DILTIAZEM CD 120 MG CAP PO SCH (08:02)
[2018-05-25] MEDS: ACETAMINOPHEN 325 MG TAB PO PRN ×2 (08:06→23:46)
[2018-05-25] MEDS: AZELASTINE HCL NS SCH (08:37)
[2018-05-25] MEDS: FLUTICASONE NASAL 120 SPRAYS/16 GM MDI EACHNARE SCH (08:37)
--- NOTE | 2018-05-25 08:51 | CPEKG ---
Test Reason : OPEN Blood Pressure : / mmHG Vent. Rate : 152 BPM Atrial Rate : 160 BPM P-R Int : 092 ms QRS Dur : 076 ms QT Int : 286 ms P-R-T Axes : 000 006 186 degrees QTc Int : 455 ms Atrial fibrillation with rapid V-rate Repolarization abnormality, prob rate related Confirmed by Danny Valencia ([id number]) on 05/25/2018 8:51:09 AM Referred By: Mariely Terry Confirmed By:Danny Valencia
[2018-05-26] MEDS: DILTIAZEM CD 120 MG CAP PO SCH (08:37)
[2018-05-26] MEDS: ACETAMINOPHEN 325 MG TAB PO PRN ×2 (08:37→15:58)
[2018-05-26] MEDS: traMADol 50 MG TAB PO PRN ×2 (08:37→15:59)
[2018-05-26 09:09] VITALS: BP 154/72
--- NOTE | 2018-05-26 09:48 | PDIAF ---
- Diagnosis Diagnosis: norovirus, brief a fib Code Status: Full Code - Medication Management Discharge Medications: electronically signed and located in the Home Medication List. PICC Care - Routine: N/A - Orders Services needed: Physical Therapy, Occupational Therapy Isolation Type: Contact Isolation, Droplet Isolation Diet Recommendation: no restrictions on diet Diet Texture: Regular Texture Diet, Thin Liquids, Meds Whole w/Liquids Additional Instructions: [facility] will arrange for an outpatient cardiac event monitor to look for recurrent A fib. Follow up in their office in 2 weeks. Stop the Atenolol. Diltiazem will replace this to help prevent recurrent atrial fibrillation (A fib). - Follow Up Care Current Providers and Referrals: Patient,NotPresent [Unknown] - As per Instructions Shy Romero PA [Physician Press Cutter] -
[2018-05-26] MEDS: AZELASTINE HCL NS SCH (09:54)
[2018-05-26] MEDS: FLUTICASONE NASAL 120 SPRAYS/16 GM MDI EACHNARE SCH (09:54)
--- NOTE | 2018-05-26 14:46 | ASMTDCNOTE ---
Case Management Discharge Discharge Order Complete? Answers: Yes Patient to Obtain Answers: Other Notes: [facility] Medications Transportation Arranged Answers: Other Notes: w/c transport arranged by Melania with [facility] will Pick (Date 05/26/2018 04:00 PM & Time) Case Management Transport Answers: Yes Form Complete Faxed Final Orders Answers: Yes Notes: via pixcert and allscripts to [facility] Agency/Facility Transfer Answers: Yes Notes: via pixcert and Report Printed & Faxed to allscripts to [facility] Receiving Agency Discharge Comments Notes: 05/26/2018 Case Management Note Melania secondary social studies teacher with [facility] [phone] arranged transport to [facility] with [facility]. W/C on RA. Faxed final orders to the [facility]. RN to call report. Case Management d/c poc: [facility] SNF for respite at the request of [facility] secondary social studies teacher Melania. Date Signed: 05/26/2018 02:45 PM Electronically Signed By:Rosalia Duncan RN
--- NOTE | 2018-05-26 14:49 | ASDISCHSUM ---
Discharge Information Plan Status:Home with Home Health Medically Cleared to Leave:05/26/2018 Discharge Date:05/26/2018 CM D/C Disposition:Home Health Service ADT D/C Disposition:[facility]HSNOT[facility]CH Projected Discharge Date:05/24/2018 11:00 AM Transportation at D/C:Wheelchair Van Discharge Delay Reason: Follow-Up Date:05/24/2018 11:00 AM Discharge Slot: Final Diagnosis: Placement Information Referral Type:*Home Health Care Services Referral ID:[facility]-[id number] Provider Name: Address 1: Phone Number: Address 2: Fax Number: City: Selection Factors: State: Referral Type:*Shelter/SNF Referral ID:[id number] Provider Name:[facility] Address 1:[facility] Address 2: City:[place] Selection Factors: State:[place] Patient Contact Information Contact Name:SHIREEN Relationship:Daughter Address: Work Phone: City: [facility] Phone: State/Zip Code: Email: Financial Information Financial Class:Medicaid Primary Plan Desc:[facility] Primary Plan Number:[id number] Secondary Plan Desc: Secondary Plan Number: Assessment Information LACE LACE Acuity / Level of Answers: Yes Care: Did the patient have an inpatient admission? Comorbidities - select Answers: Other Notes: HTN all that apply # of Emergency department Answers: 1-2 visits in the last 6 months Score: 5 Date Signed: 05/24/2018 03:50 PM Electronically Signed By:Christie Urbina RN [facility] CM Progress Note CM Note CM Note Notes: Pt has been admitted with SBO and tested positive for norovirus. NGT placed and surgery consult requested. No PT/OT orders at this time. Pt lives independently in [place]. CM wlll follow for any d/c needs. D/C plan: TBD Date Signed: 05/21/2018 12:49 PM Electronically Signed By:THERESA Redeer [facility] CM Progress Note CM Note CM Note Notes: NG tube back to suction; patient did not tolerate PO yesterday with clamping of tube. PT/OT recommending home health v SNF. Patient is enrolled w [facility]; she goes to their center 2x week and has PT there. She has light housekeeping help, as well. [facility] does not really contract w SNFs for rehab but rather uses them occasionally for respite until a patient can return to their program. Contact at [facility] is Diagnostics Tech [phone] Patient's needs still TBD; Case Management will follow. Date Signed: 05/23/2018 12:06 PM Electronically Signed By:Arianna Mcconnell RN [facility] CM Progress Note CM Note CM Note Notes: Spoke to Melania at [facility] #[phone], they cannot accept patient back tonight this late d/t contact precautions and her current alf situation. Melania will work on finding a respite bed for a discharge tomorrow. Sent info to Richar at [facility] per Melania's request, they may have a respite bed available on Wednesday. I have also alerted Dr. Terry and her primary RN. Plan: [facility]. Date Signed: 05/24/2018 04:15 PM Electronically Signed By:Christie Urbina RN Case Management Discharge Plan Note Case Management Discharge Discharge Order Complete? Answers: Yes Patient to Obtain Answers: Other Notes: [facility] Medications Transportation Arranged Answers: Other Notes: w/c transport arranged by Melania with [facility] will Pick (Date 05/26/2018 04:00 PM & Time) Case Management Transport Answers: Yes Form Complete Faxed Final Orders Answers: Yes Notes: via pixcert and allscripts to [facility] Agency/Facility Transfer Answers: Yes Notes: via pixcert and Report Printed & Faxed to allscripts to [facility] Receiving Agency Discharge Comments Notes: 05/26/2018 Case Management Mando Velázquez oncology social work with [facility] [phone] arranged transport to the [facility] with [facility]. W/C on RA. Faxed final orders to the [facility]. RN to call report. Case Management d/c poc: [facility] for respite at the request of [facility] oncology social work Melania. Date Signed: 05/26/2018 02:45 PM Electronically Signed By:Rosalia Duncan RN Intervention Information
--- NOTE | 2018-05-27 03:03 | GDS ---
[f rep st] DISCHARGE SUMMARY DISCHARGE DIAGNOSES: 1. Norovirus gastroenteritis. 2. Ileus. 3. New onset atrial fibrillation. 4. Adrenal nodules. HISTORY: This patient is an 83-year-old female who presented with abdominal pain, nausea, vomiting, diarrhea. Initially, there was concern for small bowel obstruction as this was seen on her CAT scan. An NG tube was placed. Surgery was consulted. Her stool tested positive for Norovirus. It was fe lt she was likely not obstructed and this was all probably ileus due to her severe viral gastroenteri tis. She gradually improved. On the day of discharge, she had a formed stool. During this hospitalization, she went into rapid AFib. She was seen in consultation by Cardiology. This lasted less than 24 hours. She will be discharged on a low dose of oral diltiazem. Cardiology did not recommend anticoagulation due to the brief nature of her AFib. Shy Romero from [facility] ais to arrange outpatient cardiac event monitoring. Echo was unremarkable. Incidentally noted on CT scan of her chest were some adrenal nodules. These should be followed as an outpatient. DISCHARGE MEDICATIONS: Please see computerized record for full detailed list. New medication: Dilt iazem CD 120 mg p.o. daily. ADDITIONAL DISCHARGE INSTRUCTIONS: 1. Outpatient cardiac event monitor to look for recurrent AFib. Follow up in Cardiology office 2 we eks. 2. Outpatient evaluation of adrenal nodules. 3. Greater than 30 minutes of time was spent arranging this discharge. Patient was seen and examined by me on the day of discharge. /[id number]
== END 2018-05-26 16:05 | DRG 249 ==
LOC: EDUNIT# → F3N 22:50 → F2W 05-22 04:00
PROVIDERS: ADMIT Hospitalist; ATTEND Hospitalist
DX: A08.39 Other viral enteritis (principal); K56.7 Ileus, unspecified; E86.9 Volume depletion, unspecified; I48.91 Unspecified atrial fibrillation; D44.10 Neoplasm of uncertain behavior of unspecified adrenal gland; I10 Essential (primary) hypertension; Z90.710 Acquired absence of both cervix and uterus; Z96.651 Presence of right artificial knee joint
CPT/HCPCS: 82435-PO; 82565-PO; 82947-PO; 84132-PO; 84295-PO; 84520-PO; 85014-ER; 92610-GN; 96374; 97110-GP; 97116-GP; 97162-GP; 97530-GP; J1170; J1650; Q9967

== ENCOUNTER → 2018-08-26 | Outpatient (CLI) | payer OTHER, MEDICAID | LOC: CIMAGING 14:42 ==